=== PATIENT | male | born 1945 | race Caucasian/White ===

== ENCOUNTER 2019-07-29 17:15 | Outpatient (RCR) | payer MEDICARE, MEDICAID, SELFPAY | END 2019-08-11 00:01 | LOC: WOUND 17:15 | PROVIDERS: Family Provider Family Medicine; Visit Provider Nurse Practitioner Family | DX: L89.154 Pressure ulcer of sacral region, stage 4 (principal) ==

== ENCOUNTER 2020-02-18 15:10 | Outpatient (CLI) | payer MEDICARE, MEDICAID, SELFPAY | END 2020-02-18 15:11 | disposition home or self-care (01) | LOC: WOUND 15:12 | PROVIDERS: PCP Internal Medicine; Visit Provider Surgery | DX: I96 Gangrene, not elsewhere classified (principal); L89.154 Pressure ulcer of sacral region, stage 4 | CPT/HCPCS: 11043 ==

== ENCOUNTER 2020-02-25 14:46 | Outpatient (CLI) | payer MEDICARE, MEDICAID, SELFPAY | END 2020-02-25 14:47 | disposition home or self-care (01) | LOC: WOUND 14:50 | PROVIDERS: PCP Internal Medicine; Visit Provider Emergency Medicine | DX: I96 Gangrene, not elsewhere classified (principal); L89.154 Pressure ulcer of sacral region, stage 4 | CPT/HCPCS: 11043 ==